=== PATIENT | male | born 1995 | race Caucasian/White ===

== ENCOUNTER → 2019-04-29 | Outpatient (CLI) | payer BC, SELFPAY ==
--- NOTE | 2019-04-29 09:27 | US_ITS ---
HISTORY:LUMP OF SOFT TISSUE DISTAL TO THE STERNUM Ultrasound of the upper abdomen limited No priors Findings: There is a hyperechoic area seen inferior to the sternum measures 1.17 cm in diameter by 1.16 x 0.85 cm. This is well-circumscribed. This has the appearance of a lipoma. If symptoms persist consider CT of chest for further evaluation US/Abdomen Limited IMPRESSION: Suspect lipoma in the soft tissues inferior to the sternum at 2107 Reported and signed by: Jill Gardner DO Electronically Signed: Jill Gardner DO at 21:06 EDT Tel , Service support ,
== END | disposition home or self-care (01) ==
PROVIDERS: Family Provider Family Medicine; PCP Family Medicine; Referring Provider Family Medicine; Visit Provider Family Medicine
DX: R22.2 Localized swelling, mass and lump, trunk (principal)
CPT/HCPCS: 76705

== ENCOUNTER → 2020-10-22 14:20 | Outpatient (CLI) | payer OTHER, SELFPAY ==
[2017-10-18 21:23] VITALS: BMI 40.3
== END ==
PROVIDERS: PCP Family Medicine; Referring Provider Family Medicine; Visit Provider Family Medicine
DX: U07.1 COVID-19 (principal)
CPT/HCPCS: 87635; U0003

== ENCOUNTER → 2021-02-23 10:04 | Outpatient (CLI) | payer OTHER, SELFPAY ==
[2017-10-18 21:23] VITALS: BMI 40.3
[2021-02-25 11:37] LABS: HIV - WCH Non-Reactive (Nonreactive); Hepatitis B Surface Antigen Non-Reactive (Nonreactive); Hepatitis C Antibody Non-Reactive (Nonreactive); Syphilis Antibodies Non-reactive
== END ==
LOC: LAB 10:07
PROVIDERS: PCP Family Medicine; Visit Provider Obstetrics & Gynecology Reproductive Endocrinology
DX: Z31.41 Encounter for fertility testing (principal)
CPT/HCPCS: 36415; 86703; 86780; 86803; 87340

== ENCOUNTER → 2021-08-06 | Outpatient (CLI) | payer BC, SELFPAY | END | disposition home or self-care (01) | LOC: LABSPEC 15:22 | PROVIDERS: PCP Family Medicine; Referring Provider Physician Assistant Surgical; Visit Provider Physician Assistant Surgical | DX: Z20.822 Contact with and (suspected) exposure to COVID-19 (principal) | CPT/HCPCS: 87635; U0005; U0003 ==

== ENCOUNTER → 2023-05-13 | Outpatient (CLI) | payer BC, SELFPAY ==
[2023-05-13 17:30] LABS: Absolute Lymphocyte Count 2.16 X10^3/uL (0.83-4.51); Absolute Neutrophil Count 5.2 X10^3/uL (2.0-7.7); Basophil# 0.07 X10^3/uL; Basophil% 0.8 % (0-1); Eosinophil# 0.13 X10^3/uL; Eosinophils% 1.6 % (0-5); Hematocrit 45.2 % (40-54); Hemoglobin 14.3 g/dL (13.0-16.5); Lymphocyte # 2.16 X10^3/ul (0.83-4.51); Lymphocyte % 26.1 % (19-41); Mean Corp Hgb Conc 31.6 g/dL (32-36); Mean Corpuscular Hgb 26.9 pg (27.0-32.0); Mean Platelet Vol. 12.5 fl (6.2-12.0); Monocyte% 8.5 % (0-10); NRBC Flagged by Analyzer 0 % (0-5); Neutrophil # 5.17 X10^3/uL (2.7-7.7); Neutrophil % 62.5 % (47-70); Platelet Count 275 K/mm3 (150-450); RBC Distribution Width CV 14.2 % (11.6-14.6); RBC Distribution Width SD 43.6 fl (35.1-43.9); Red Blood Count 5.32 M/mm3 (4.6-6.2); White Blood Count 8.3 K/mm3 (4.4-11.0)
[2023-05-13 18:14] LABS: AST(SGOT) 22 U/L (15-37); Alanine Aminotransfer ALT/SGPT 35 U/L (16-61); Albumin, Serum 3.7 g/dL (3.2-5.0); Alkaline Phosphatase 57 U/L (45-117); Anion Gap 3 (5-15); BUN 14 mg/dL (7-18); Calcium,Total 8.9 mg/dL (8.5-10.1); Chloride 108 mmol/L (98-107); Cholesterol 190 mg/dL (200); Creatinine, Serum 1.27 mg/dL (0.70-1.30); EST Glomerular Filtration Rate 71 mL/min (>60); Est Glom Filt Rate - Afr Amer 86 mL/min (>60); Globulin 3.8 g/dL (2.2-4.2); Glucose 81 mg/dL (74-106); High Density Lipoprotein 38 mg/dL; Potassium 4.2 mmol/L (3.5-5.1); Protein, Total 7.5 g/dL (6.4-8.2); Sodium Level 139 mmol/L (136-145); T4 Free Direct 0.86 ng/dL (0.76-1.46); Thyroid Stim Hormone (TSH) 2.87 uIU/mL (0.358-3.74); Triglycerides 394 mg/dL; Very Low Density Lipoprotein 79 mg/dL (5-40)
[2023-05-15 16:09] LABS: Anti-Thyroglobulin AB < 1.0 IU/mL (0.0-0.9); Thyroglobulin, Serum Qt. 18.8 ng/mL (1.4-29.2); Thyroid Peroxidase AB < 9 IU/mL (0-34)
== END | disposition home or self-care (01) ==
LOC: MFPLAB 16:46
PROVIDERS: Family Medicine; PCP Family Medicine; Visit Provider Family Medicine
DX: E66.01 Morbid (severe) obesity due to excess calories (principal); E04.1 Nontoxic single thyroid nodule; R68.89 Other general symptoms and signs
CPT/HCPCS: 80053; 80061; 84432; 84439; 84443; 85025; 86376; 86800

== ENCOUNTER → 2023-07-18 | Outpatient (CLI) | payer BC, SELFPAY ==
--- NOTE | 2023-07-18 10:31 | US_ITS ---
STUDY: THYROID ULTRASOUND REASON FOR EXAM: Male, 27 years old. NODULE felt by doctor TECHNIQUE: Ultrasound evaluation of the thyroid was performed with real-time and static mcgarry-scale imaging. COMPARISON: None. FINDINGS: RIGHT LOBE: The right lobe of the thyroid gland measures 5.3 x 2.2 x 1.4 cm. There is a homogeneous echotexture. There are no demonstrated solid, cystic or complex lesions. LEFT LOBE: The left lobe of the thyroid gland measures 4.8 x 1.8 x 1.6 cm. There is a homogeneous echotexture. There are no demonstrated solid, cystic or complex lesions. ISTHMUS: The isthmus measures 3 . The regional lymph nodes are normal. US/Thyroid IMPRESSION: Homogeneous appearance of the thyroid. No visualized nodules or suspicious masses. Borderline enlarged by volume right thyroid gland compared to the left. Electronically Signed: Jill Cervantes MD at 16:01 EDT ,
== END | disposition home or self-care (01) ==
PROVIDERS: PCP Family Medicine; Referring Provider Family Medicine; Visit Provider Family Medicine
DX: E04.1 Nontoxic single thyroid nodule (principal)
CPT/HCPCS: 76536

== ENCOUNTER 2024-01-18 15:30 | Emergency (ER) | payer BC, SELFPAY ==
[2024-01-18 15:31] VITALS: BP 146/95; PULSE 79; RESP 18; TEMP 36.4; O2SAT 98; BMI 48.4
--- NOTE | 2024-01-18 15:32 | US_ITS ---
INDICATION: pain, swelling- anterior scrotum EXAMINATION: Ultrasound US Scrotum (Contents) TECHNIQUE: Realtime ultrasound of the testicles was performed with grayscale, Color Doppler and spectral Doppler analysis. COMPARISON: None. FINDINGS: RIGHT: TESTIS: 4.9 x 2.6 x 1.9 cm. Normal in size and echotexture, without focal lesion. COLOR DOPPLER: Normal arterial flow present in the testicle with monophasic waveforms. EPIDIDYMIS: 2 mm spermatocele. [Normal color Doppler flow pattern in the epididymis. HYDROCELE: Small. VARICOCELE: None. LEFT: TESTIS: 4.5 x 2.6 x 1.9 cm. Normal in size and echotexture, without focal lesion. COLOR DOPPLER: Normal arterial flow present in the testicle with monophasic waveforms. EPIDIDYMIS: 2 mm spermatocele. [Normal color Doppler flow pattern in the epididymis. HYDROCELE: Small. VARICOCELE: Present. Diffuse thickening of the anterior scrotal wall with heterogenous echotexture but no well-defined fluid collections. US/Testicular with Arterial Flow IMPRESSION: Normal testes bilaterally. Diffuse scrotal edema/cellulitis without well-defined fluid collection. Electronically Signed: Ronald Madden MD at 19:17 EST ,
--- NOTE | 2024-01-18 18:20 | EX.ED.GUMALE ---
HPI <FATIMAH Tenorio - Last Filed: 01/18/24 20:11> History of Present Illness Chief Complaint: Male Pain/Injury Narrative Narrative: Patient presenting today due to scrotal pain and swelling that started over the weekend. He reports that he feels a painful lump in his scrotum. He denies any fevers, chills, abdominal pain, nausea, vomiting, urinary symptoms, penile discharge, and concerns for STDs. PFSH <FATIMAH Tenorio - Last Filed: 01/18/24 20:11> [facility] Medical History Hypertension Home Medications acyclovir 800 mg tablet 800 mg PO DAILY 01/18/24 [History Last Taken Unknown] sulfamethoxazole 800 mg-trimethoprim 160 mg tablet (Bactrim DS) 1 tab PO BID #14 tabs 01/18/24 [Rx Last Taken Unknown] Allergy/AdvReac Type Severity Reaction Status Date / Time No Known Allergies Allergy Verified 08/06/21 11:33 Social History Smoking Status: Never smoker alcohol intake: current alcohol intake frequency: a few times a week Alcohol type: beer ROS <FATIMAH Tenorio - Last Filed: 01/18/24 20:11> ROS ED Constitutional Constitutional ED: Denies chills or fever(s) Cardiovascular Cardiovascular: Denies chest pain Respiratory/Chest Respiratory/Chest: Denies cough or dyspnea Gastrointestinal Gastrointestinal: Denies abdominal pain, nausea or vomiting Genitourinary Genitourinary ED: Denies dysuria, hematuria or urinary urgency Musculoskeletal Musculoskeletal: Denies arthralgias or myalgias Integumentary Denies rash Neurologic Neurologic: Denies weakness EXAM <FATIMAH Tenorio - Last Filed: 01/18/24 20:11> Physical Exam Const Vital Signs: 01/18/24 15:31 01/18/24 19:50 01/18/24 20:07 Temperature 97.6 F L 97.5 F L Temperature Source Temporal Pulse Rate 79 75 Respiratory Rate 18 18 18 Blood Pressure 146/95 H 139/90 H Blood Pressure Mean 112 106 Pulse Ox 98 99 Oxygen Delivery Method Room Air Positive well nourished, well developed and no apparent distress General Appearance ED: well developed HEENT Reports normocephalic and head/scalp atraumatic Mouth ED: Yes moist mucous membranes normal Eyes PERRL and EOMs intact bilaterally Neck full ROM and supple Chest Wall inspection of chest normal Resp normal respiratory effort and clear to auscultation bilaterally Cardio regular rate and regular rhythm GI soft to palpation, non-tender, non-distended and no masses Narrative: Exam performed with nurse, slight scrotal swelling, anterior midline area of swelling No rashes noted Back/Spine normal ROM and normal to inspection Extremity normal to inspection and full ROM Neuro oriented x3, CN's II-XII intact bilaterally, moves all extremities, no focal motor deficits and no sensory deficits noted Sensorium / Orientation: awake and alert Psych mental status grossly normal and thought process normal Skin no rashes or lesions noted and no wounds <Dr. Arun Meyers, - Last Filed: 01/18/24 23:52> Physical Exam Const Vital Signs: 01/18/24 15:31 01/18/24 19:50 01/18/24 20:07 Temperature 97.6 F L 97.5 F L Temperature Source Temporal Pulse Rate 79 75 Respiratory Rate 18 18 18 Blood Pressure 146/95 H 139/90 H Blood Pressure Mean 112 106 Pulse Ox 98 99 Oxygen Delivery Method Room Air [facility] <FATIMAH Tenorio - Last Filed: 01/18/24 20:11> [facility] Narrative Medical decision making narrative: Patient presenting due to scrotal swelling and pain that he has had since this weekend. He is nontoxic-appearing and in no acute distress, vitals are unremarkable. He has slight swelling to his scrotum with an area of swelling that is anterior and midline, I did have some concerns that this was an abscess, however the ultrasound does not show any discrete fluid collection. No testicular torsion, no lakeshia's gangrene. UA was obtained, negative for UTI. He will be tested for chlamydia and gonorrhea. Ultrasound does show cellulitis, he will be treated with Bactrim with first dose here. I have given him a urology follow-up and strict return instructions. He will be discharged home in stable condition and is comfortable with plan. Lab Data Attestation: I reviewed the patient's lab results. Labs: Laboratory Results - last 24 hr 01/18/24 18:31 Urine Color Yellow Urine Clarity Clear Urine pH 6.0 Ur Specific [place] 1.020 Urine Protein 15 H Urine Glucose (UA) Normal Urine Ketones 5 H Urine Occult Blood Negative Urine Nitrite Negative Urine Bilirubin Negative Urine Urobilinogen Normal Ur Leukocyte Esterase Negative Urine RBC 0 SEEN Urine WBC 0 SEEN Ur Squamous Epith Cells 0 SEEN Urine Bacteria 0 SEEN Urine Mucus 0 SEEN Radiography Diagnostic Testing: Clinical Impression(s) from Imaging Studies Testicular Ultrasound 01/18/24 15:32 IMPRESSION: Normal testes bilaterally. Diffuse scrotal edema/cellulitis without well-defined fluid collection. Electronically Signed: Ronald Madden MD at 19:17 EST , <Dr. Arun Meyers, DO - Last Filed: 01/18/24 23:52> [facility] MDM Narrative Medical decision making narrative: Patient presenting due to scrotal swelling and pain that he has had since this weekend. He is nontoxic-appearing and in no acute distress, vitals are unremarkable. He has slight swelling to his scrotum with an area of swelling that is anterior and midline, I did have some concerns that this was an abscess, however the ultrasound does not show any discrete fluid collection. No testicular torsion, no lakeshia's gangrene. UA was obtained, negative for UTI. He will be tested for chlamydia and gonorrhea. Ultrasound does show cellulitis no evidence of abscess, he will be treated with Bactrim with first dose here. I have given him a urology follow-up and strict return instructions. He will be discharged home in stable condition and is comfortable with plan. ED attending note: I evaluated the patient in conjunction with the SAMUEL. I agree with his/her statements and above findings. I have personally performed a face to face assessment of the patient and have reviewed the SAMUEL Note. I performed a substantive portion of the visit including all aspects of the following. I personally saw the patient performed chart review, physical exam, reviewed labs, imaging (if obtained), and formulated a treatment and management plan. This note was generated with PowerMessageation software. It may contain incorrect words, spelling, and punctuation that were not noted in review of the chart prior to signing. Lab Data Labs: Laboratory Results - last 24 hr 01/18/24 18:31 Urine Color Yellow Urine Clarity Clear Urine pH 6.0 Ur Specific [place] 1.020 Urine Protein 15 H Urine Glucose (UA) Normal Urine Ketones 5 H Urine Occult Blood Negative Urine Nitrite Negative Urine Bilirubin Negative Urine Urobilinogen Normal Ur Leukocyte Esterase Negative Urine RBC 0 SEEN Urine WBC 0 SEEN Ur Squamous Epith Cells 0 SEEN Urine Bacteria 0 SEEN Urine Mucus 0 SEEN Radiography Diagnostic Testing: Clinical Impression(s) from Imaging Studies Testicular Ultrasound 01/18/24 15:32 IMPRESSION: Normal testes bilaterally. Diffuse scrotal edema/cellulitis without well-defined fluid collection. Electronically Signed: Ronald Madden MD at 19:17 EST , Discharge Plan Triage Chief Complaint: Male Pain/Injury ED Midlevel Provider: Sonya Jackman ED Provider: Arun Meyers Dx/Rx/DC Orders Clinical Impression: Cellulitis of scrotum Instructions: ED Cellulitis Prescriptions: New sulfamethoxazole-trimethoprim [Bactrim DS] 800-160 mg tablet 1 tab PO BID Qty: 14 0RF No Action acyclovir 800 mg tablet 800 mg PO DAILY Primary Care Provider: Papi Diaz Referrals: Lawrence Santana MD [Med Staff - Active Staff] - 5-7 Days Papi Diaz MD [Primary Care Provider] - Activity Restrictions/Additional Instructions: Follow-up with urology. Please return for any worsening of symptoms. Disposition Disposition: Home, Self Care Discharge Date/Time: 01/18/24 20:08
[2024-01-18 18:43] LABS: Bacteria 0 SEEN /hpf (None Seen); Mucous, Urine 0 SEEN /hpf (<or=2+); Red Blood Cells-Urine 0 SEEN /hpf (0-5); Squamous Epithelial Cells - UA 0 SEEN /hpf (0-5); White Blood Cells 0 SEEN /hpf (0-5)
[2024-01-18 18:49] LABS: Color, Urine Yellow (Yellow); Glucose, Dipstick Normal (Normal); Ketone-Dipstick 5 mg/dl (Negative); Leukocyte Esterase-Dipstick Negative /ul (Negative); Nitrite-Dipstick Negative (Negative); Occult Blood-Urine Negative /ul (Negative); Protein-Dipstick 15 mg/dl (Negative); Urine Bilirubin Dipstick Negative (Negative); Urine Clarity Clear (Clear); Urine Urobilinogen Normal (Normal)
[2024-01-18 19:50] VITALS: RESP 18
[2024-01-18] MEDS: Smz/Tmp Ds Tablet 1 TABLET PO (20:03)
[2024-01-18 20:07] VITALS: BP 139/90; PULSE 75; RESP 18; TEMP 36.4; O2SAT 99
--- OUTSIDE RECORDS SUMMARY | 2024-01-18 20:22 | XMS RPT_ITS | CCD ---
Author Name Unknown Address [address] [place] [address] Organization [facility] Results Test Name Value Interpretation Reference Range Facil ity Summary Purpose Family History No Family History Records FoundNo Family History Records Found Advance Directives No Advanced Directives Records FoundNo Advanced Directives Records Found Additional Source Comments (unrecognized sect ion and content) No Status Records FoundNo Status Records Found INFORMATION SOURCE (unrecogn ized section and content) DATE CREATED AUTHOR AUTHOR'S IBRAHIMA ATION 03/13/2020 [facility] FOR RECORDS PERTAINING TO PATIENTS WHO ARE OR HAVE BEEN ENROLLED IN A CHEMICAL DEPENDENCY/SUBSTANCEABUSE PROGRAM, SOME INFORMATION MAY BE OMITTED. This clinical summary was aggregated from multiple sources. Caution should be exercised in using it in the provision of clinical care. This summary normalizes information from multiple sources, and as a consequence, information in this document may materially change the coding, format and clinical context of patient data. In addition, data may be omitted in some cases. CLINICAL DECISIONS SHOULD BE BASED ON THE PRIMARY CLINICAL RECORDS. [facility]. provides no warranty or guarantee of the accuracy or completeness of information in this document.
== END 2024-01-18 20:08 | disposition home or self-care (01) ==
PROVIDERS: Emergency Provider Emergency Medicine; PCP Family Medicine; Visit Provider Emergency Medicine
DX: N49.2 Inflammatory disorders of scrotum (principal); I10 Essential (primary) hypertension
CPT/HCPCS: 76870; 81001; 87491; 87591; 93976; 99282